=== PATIENT | female | born 1950 | race Caucasian/White ===

== ENCOUNTER 2016-04-03 13:34 | Inpatient (IN) | payer MEDICARE, MEDICAID ==
[~2016-04-03] VITALS: Ht 170.2 cm; Wt 156.3 kg
[2016-04-03 15:49] VITALS: BP_SYST 118; RESP 20; TEMP 98.8
[2016-04-03 15:51] VITALS: Ht 170.2 cm; Wt 156.3 kg
[2016-04-03] MEDS ORDERED: GLUCAGON 1 MG VIAL IM PRN (18:25)
[2016-04-03] MEDS ORDERED: BUMETANIDE 1 MG/4 ML VIAL IV ONE (18:25)
[2016-04-03] MEDS ORDERED: DEXTROSE 50% SYRINGE 50 ML IV PRN (18:25)
[2016-04-03] MEDS ORDERED: SALINE FLUSH 10 ML FLUSH PRN (18:25)
[2016-04-03] MEDS ORDERED: ONDANSETRON 4 MG VIAL IV PRN (18:25)
[2016-04-03] MEDS: SALINE FLUSH 10 ML FLUSH SCH (19:40)
[2016-04-03] MEDS: LEVOFLOXACIN 750 MG/150 ML 150 ML IV SCH (19:40)
[2016-04-03] MEDS: METHYLPRED SOD SUCC 40 MG VIAL IV SCH ×2 (20:00→23:41)
[2016-04-03] MEDS: MONTELUKAST 10 MG TAB PO SCH (20:00)
[2016-04-03 20:29] VITALS: BP_SYST 138; TEMP 98.4
[2016-04-03] MEDS ORDERED: Atorvastatin 10 MG TAB PO SCH (21:00)
[2016-04-03 23:04] VITALS: BP_SYST 112; RESP 20; TEMP 98.5
[2016-04-04] MEDS: Hydrocodone/APAP 10/325 MG TAB PO PRN ×4 (00:27→21:19)
[2016-04-04 03:11] VITALS: BP_SYST 110; RESP 20; TEMP 98.6
[2016-04-04] MEDS ORDERED: MISSING DOSE XX ONE ×3 (06:15→20:30)
[2016-04-04] MEDS: LEVOTHYROXINE 0.075 MG TAB PO SCH (06:42)
[2016-04-04] MEDS: SODIUM CHLORIDE 0.9% FLUSH BAG 500 ML IV SCH (06:42)
[2016-04-04] MEDS: METHYLPRED SOD SUCC 40 MG VIAL IV SCH ×2 (07:54→15:27)
[2016-04-04] MEDS: SALINE FLUSH 10 ML FLUSH SCH ×2 (07:54→21:19)
[2016-04-04 08:07] VITALS: BP_SYST 104; RESP 18; TEMP 97.3
[2016-04-04] MEDS: LEVOFLOXACIN 750 MG/150 ML 150 ML IV SCH (08:37)
[2016-04-04] MEDS: SERTRALINE 100 MG TAB PO SCH (08:39)
[2016-04-04] MEDS ORDERED: ASPIRIN EC 81 MG TAB PO SCH (09:00)
[2016-04-04] MEDS: IRBESARTAN 75 MG TAB PO SCH (09:00)
[2016-04-04] MEDS: ATENOLOL 25 MG TAB PO SCH (09:00)
[2016-04-04] MEDS: BUMETANIDE 1 MG/4 ML VIAL IV SCH ×2 (11:00→17:43)
[2016-04-04 11:44] VITALS: BP_SYST 110; RESP 16; TEMP 97.8
[2016-04-04 15:19] VITALS: BP_SYST 150; RESP 22; TEMP 97.6
[2016-04-04] MEDS ORDERED: AZITHROMYCIN 250 MG TAB PO ONE (16:15)
[2016-04-04] MEDS ORDERED: NEB-BROVANA 15 MCG/2 ML INH ONE (16:38)
[2016-04-04] MEDS ORDERED: NEB-BUDESONIDE 0.5 MG INH ONE (16:38)
[2016-04-04] MEDS: NEB-BROVANA 15 MCG/2 ML INH SCH (16:42)
[2016-04-04] MEDS: DUONEB INH SCH (16:42)
[2016-04-04] MEDS: NEB-BUDESONIDE 0.5 MG INH SCH (16:43)
[2016-04-04 16:56] VITALS: RESP 16
[2016-04-04] MEDS: DOCUSATE SOD 100 MG CAP PO PRN (19:17)
[2016-04-04 20:07] VITALS: BP_SYST 142; RESP 20; TEMP 97.9
[2016-04-04] MEDS: Atorvastatin 10 MG TAB PO SCH (21:19)
[2016-04-04] MEDS: MONTELUKAST 10 MG TAB PO SCH (21:19)
[2016-04-05] MEDS: SODIUM CHLORIDE 0.9% FLUSH BAG 500 ML IV SCH (04:41)
[2016-04-05] MEDS: LEVOTHYROXINE 0.075 MG TAB PO SCH (06:17)
[2016-04-05] MEDS: NEB-BUDESONIDE 0.5 MG INH SCH ×2 (07:22→19:14)
[2016-04-05] MEDS: DUONEB INH SCH ×3 (07:22→19:14)
[2016-04-05] MEDS: NEB-BROVANA 15 MCG/2 ML INH SCH ×2 (07:22→19:14)
[2016-04-05] MEDS ORDERED: MISSING DOSE XX ONE ×2 (07:50→08:10)
[2016-04-05 08:07] VITALS: BP_SYST 110; RESP 20; TEMP 97.9
[2016-04-05] MEDS: SALINE FLUSH 10 ML FLUSH SCH ×2 (09:04→21:55)
[2016-04-05] MEDS: PREDNISONE 20 MG TAB PO SCH (09:05)
[2016-04-05] MEDS: BUMETANIDE 1 MG/4 ML VIAL IV SCH ×2 (09:05→16:55)
[2016-04-05] MEDS: IRBESARTAN 75 MG TAB PO SCH (09:05)
[2016-04-05] MEDS: ASPIRIN EC 81 MG TAB PO SCH (09:05)
[2016-04-05] MEDS: DOCUSATE SOD 100 MG CAP PO PRN (09:05)
[2016-04-05] MEDS: AZITHROMYCIN 250 MG TAB PO SCH (09:05)
[2016-04-05] MEDS: ATENOLOL 25 MG TAB PO SCH (09:06)
[2016-04-05] MEDS: SERTRALINE 100 MG TAB PO SCH (09:06)
[2016-04-05] MEDS: Hydrocodone/APAP 10/325 MG TAB PO PRN ×3 (09:07→22:24)
[2016-04-05 12:23] VITALS: BP_SYST 120; RESP 20; TEMP 98.2
[2016-04-05 15:18] VITALS: BP_SYST 116; RESP 20; TEMP 98.1
[2016-04-05 19:25] VITALS: BP_SYST 120; RESP 18; TEMP 97
[2016-04-05 20:23] VITALS: BP_SYST 122; RESP 20; TEMP 98.2
[2016-04-05] MEDS: Atorvastatin 10 MG TAB PO SCH (21:55)
[2016-04-05] MEDS: MONTELUKAST 10 MG TAB PO SCH (21:55)
[2016-04-06] VITALS (7 sets, daily range): BP systolic 108–124; RESP 16–20; TEMP 96.4–98.8
[2016-04-06] MEDS: SODIUM CHLORIDE 0.9% FLUSH BAG 500 ML IV SCH ×2 (06:00→21:24)
[2016-04-06] MEDS: LEVOTHYROXINE 0.075 MG TAB PO SCH (06:35)
[2016-04-06] MEDS: NEB-BROVANA 15 MCG/2 ML INH SCH ×2 (07:23→19:41)
[2016-04-06] MEDS: NEB-BUDESONIDE 0.5 MG INH SCH ×2 (07:23→19:40)
[2016-04-06] MEDS: DUONEB INH SCH ×3 (07:24→19:40)
[2016-04-06] MEDS ORDERED: SOD CHL NASAL SPR 45ML NARE EACH PRN (07:35)
[2016-04-06] MEDS: ASPIRIN EC 81 MG TAB PO SCH (10:20)
[2016-04-06] MEDS: SERTRALINE 100 MG TAB PO SCH (10:20)
[2016-04-06] MEDS: PREDNISONE 20 MG TAB PO SCH (10:21)
[2016-04-06] MEDS: FLUTICASONE 0.05% NA BTL NARE EACH SCH ×2 (10:21→20:10)
[2016-04-06] MEDS: AZITHROMYCIN 250 MG TAB PO SCH (10:21)
[2016-04-06] MEDS: IRBESARTAN 75 MG TAB PO SCH (10:21)
[2016-04-06] MEDS: SALINE FLUSH 10 ML FLUSH SCH ×2 (10:21→20:09)
[2016-04-06] MEDS: ATENOLOL 25 MG TAB PO SCH (10:21)
[2016-04-06] MEDS: BUMETANIDE 1 MG/4 ML VIAL IV SCH ×2 (10:22→17:50)
[2016-04-06] MEDS: Hydrocodone/APAP 10/325 MG TAB PO PRN ×2 (10:36→17:30)
[2016-04-06] MEDS: Atorvastatin 10 MG TAB PO SCH (20:09)
[2016-04-06] MEDS: MONTELUKAST 10 MG TAB PO SCH (20:09)
[2016-04-06] MEDS ORDERED: MISSING DOSE XX ONE (20:15)
[2016-04-06] MEDS: DOCUSATE SOD 100 MG CAP PO PRN (21:02)
[2016-04-07] MEDS: Hydrocodone/APAP 10/325 MG TAB PO PRN ×2 (00:43→08:20)
[2016-04-07 04:35] VITALS: BP_SYST 118; RESP 18; TEMP 97
[2016-04-07] MEDS: LEVOTHYROXINE 0.075 MG TAB PO SCH (05:31)
[2016-04-07 07:31] VITALS: BP_SYST 122; RESP 20; TEMP 95.9
[2016-04-07] MEDS: DUONEB INH SCH ×2 (07:41→11:46)
[2016-04-07] MEDS: NEB-BUDESONIDE 0.5 MG INH SCH (07:41)
[2016-04-07] MEDS: NEB-BROVANA 15 MCG/2 ML INH SCH (07:41)
[2016-04-07] MEDS: FLUTICASONE 0.05% NA BTL NARE EACH SCH (08:12)
[2016-04-07] MEDS: ASPIRIN EC 81 MG TAB PO SCH (08:12)
[2016-04-07] MEDS: IRBESARTAN 75 MG TAB PO SCH (08:12)
[2016-04-07] MEDS: SALINE FLUSH 10 ML FLUSH SCH (08:12)
[2016-04-07] MEDS: SERTRALINE 100 MG TAB PO SCH (08:12)
[2016-04-07] MEDS: AZITHROMYCIN 250 MG TAB PO SCH (08:12)
[2016-04-07] MEDS: ATENOLOL 25 MG TAB PO SCH (08:12)
[2016-04-07] MEDS ORDERED: PREDNISONE 20 MG TAB PO SCH (09:00)
[2016-04-07 11:05] VITALS: BP_SYST 124; RESP 20; TEMP 96.5
[2016-04-07 13:37] VITALS: BP_SYST 124; RESP 20; TEMP 96.5
== END 2016-04-07 15:09 | disposition home health service (06) | DRG 190 ==
LOC: ENRESERVDT → ENRESERVTM → ENPENDDIS 15:37 → 4THE 15:37 → 4NT 22:38
PROVIDERS: ADMIT Family Medicine; ATTEND Family Medicine
DX: J44.1 Chronic obstructive pulmonary disease with (acute) exacerbation (principal); I50.33 Acute on chronic diastolic (congestive) heart failure; J96.10 Chronic respiratory failure, unspecified whether with hypoxia or hypercapnia; Z99.81 Dependence on supplemental oxygen; Z68.43 Body mass index [BMI] 50.0-59.9, adult; E11.65 Type 2 diabetes mellitus with hyperglycemia; I11.0 Hypertensive heart disease with heart failure; E03.9 Hypothyroidism, unspecified; E66.01 Morbid (severe) obesity due to excess calories; G47.33 Obstructive sleep apnea (adult) (pediatric); D63.8 Anemia in other chronic diseases classified elsewhere; K21.9 Gastro-esophageal reflux disease without esophagitis; M19.90 Unspecified osteoarthritis, unspecified site; F41.9 Anxiety disorder, unspecified; Z87.442 Personal history of urinary calculi; Z87.891 Personal history of nicotine dependence; Z79.4 Long term (current) use of insulin; Z79.82 Long term (current) use of aspirin; T50.1X6A Underdosing of loop [high-ceiling] diuretics, initial encounter; Z91.128 Patient's intentional underdosing of medication regimen for other reason
CPT/HCPCS: 36600; 71010; 80053; 82553; 82803; 82947; 83880; 84484; 85007; 85025; 85027; 85379; 87040; 93005; 94640; 94799; 99222; 99223; 99232; 99233